=== PATIENT | male | born 1940 | race Caucasian/White ===

== ENCOUNTER 2017-04-17 09:53 | Outpatient (CLI) | payer MEDICARE ==
--- NOTE | 2017-04-17 13:46 | RAD ---
CHEST PA AND LATERAL: Date: 04/17/17 HISTORY: 76-year-old male with dyspnea. COMPARISON: 05/09/16. FINDINGS: Heart size is within normal limits. Stable chronic linear and interstitial changes and minimal bullo us changes are noted bilaterally. Atherosclerosis of aorta. Somewhat triangular shaped stable metall ic density presumed foreign body overlying the left upper sternal region. Metal plate and screws sta bilize the right clavicle laterally. IMPRESSION: Stable chronic lung changes. No acute intrathoracic disease. POS: OFF
== END 2017-04-17 09:54 | disposition home or self-care (01) ==
LOC: RAD 09:53
PROVIDERS: ATTEND Internal Medicine Critical Care Medicine
DX: R06.00 Dyspnea, unspecified (principal)
CPT/HCPCS: 71020

== ENCOUNTER 2018-04-23 10:34 | Outpatient (CLI) | payer MEDICARE ==
--- NOTE | 2018-04-23 13:01 | RAD ---
CHEST TWO VIEWS: Comparison: 04-17-17, 06-03-17 History: Dyspnea. FINDINGS: There are chronic changes throughout the lung parenchyma. No consolidation or masses. No definite ple ural effusion. Normal cardiac silhouette. Pulmonary vessels are unremarkable. No pneumothorax. Redemo nstration of an internal fixation plate at the distal right clavicle. IMPRESSION: Chronic changes. No acute process. POS: [facility]
== END 2018-04-23 10:35 | disposition home or self-care (01) ==
LOC: RAD 10:34
PROVIDERS: ATTEND Internal Medicine Critical Care Medicine
DX: R06.00 Dyspnea, unspecified (principal)
CPT/HCPCS: 71046

== ENCOUNTER 2019-06-25 13:13 | Inpatient (IN) | payer MEDICARE ==
--- NOTE | 2019-06-25 13:53 | PDOC.FPRHP ---
- History of Present Illness Chief Complaint: L facial droop History of Present Illness: 79 yo M with PMH of multiple strokes presents for Left sided facial weakness that started at 0900 on 06/24/2019. He was a transfer from [place]. Patient presents with his daughter, who lives near his home. Patient lives with his in his own home. Patient developed L sided weakness in his arm and leg 1 week ago, went to his PCPs office and saw the GARNETT ROOM WORKER there. He received an outpatient CT head that was normal. Pt developed slurred speech 2 days ago. Yesterday when he developed the L facial droop, family states they could not get him to come to the hospital. In the [place] ED, pt received aspirin. CT head was negative. CTA head neck showed right sided carotid artery stenosis. 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 Drinks about 12 beers per week. No drug use. - Review of Systems General: denies: fever/chills, weight/appetite/sleep changes Eyes: denies: eye pain, vision changes ENT: reports: other (post nasal drainage). denies: nasal congestion, rhinorrhea Respiratory: reports: shortness of breath. denies: cough, congestion Cardiovascular: denies: chest pain, palpitation, edema Gastrointestinal: denies: nausea, vomiting, diarrhea, constipation, abdominal pain, GI bleeding Genitourinary: denies: incontinence, dysuria Skin: reports: rashes (itching bilat lower extremities), lesions (itching lesions BLE), itching Musculoskeletal: denies: pain, tenderness, swelling Neurological: reports: weakness. denies: numbness, syncope, seizure Psychological: denies: anxiety, depression - Vital signs BP: 170/91, Pulse: 61, Resp: 16, Temp: 98.1 (Oral), Pain: 0, O2 sat: 96 on ( Room Air), Time: 06/25/2019 13:31. - Physical Exam Constitutional: NAD, awake, alert and oriented HEENT: PERRLA, EOMI, conjunctiva clear, no scleral icterus, grossly normal hearing, MMM, oropharynx clear, other (mild L sided facial droop) Neck: supple, no LAD Heart: RRR, normal S1/S2, no murmurs/rubs/gallops, pulses present, no edema Lungs: CTAB, no respiratory distress, good air movement, no wheezing Abdomen: soft, non-tender, bowel sounds present Musculoskeletal: normal structure, ROM grossly normal Neurological: other (mild L facial droop with forehead sparing; 4/5 weakness L shoulder shrug; Dysdiadochokinesia L hand; ataxia on finger to nose L side and L side [id number]. 5/5 strenght bilat lower extremities) Skin: good turgor, capillary refill <2 seconds -Skin: rash BLE: scattered pink plaques with scabbing BLE on shins and feet Heme/Lymphatic: no unusual bruising or bleeding Psychiatric: normal mood and affect, intact recent and remote memory FMR H&P: Results - Labs Result Diagrams: 06/27/19 05:11 FMR H&P: A/P - Problem List (1) History of CVA (cerebrovascular accident) Current Visit: Yes Status: Chronic Code(s): Z86.73 - PRSNL HX OF TIA (TIA), AND CEREB INFRC W/O RESID DEFICITS (2) Stenosis of right carotid artery Current Visit: Yes Status: Acute Code(s): I65.21 - OCCLUSION AND STENOSIS OF RIGHT CAROTID ARTERY (3) Rash and nonspecific skin eruption Current Visit: Yes Status: Acute Code(s): R21 - RASH AND OTHER NONSPECIFIC SKIN ERUPTION - Plan Likely CVA with Rt carotid artery stenosis -L arm and leg weakness x 1 week, dysarthria x2 days, L facial droop x1 day. -CT head negative, CTA head/neck showed Rt carotid artery stenosis -s/p aspirin -MRI pending -CV surgery consulted, appreciate recs -Neuro consulted, Dr. Go, appreciate recs -FLP pending, continue home fenofibrate -PT/OT/Speech consulted COPD -continue home symbicort Rash BLE -pt has seen business process expert outpatient -topical steroid cream DVT ppx: lovenox Gi ppx: famotidine Diet: HH, NPO at midnight Consults: PT/OT/Speech; Neuro and Neurosurgery PCP: Rosio Dispo: Admit to telemetry inpatient. LOS likely >2 midnights Addendum - Attending - Attending Attestation Date/Time: 06/28/19 1036 I personally evaluated the patient and discussed the management with Dr. Ulises Fam on 06/25/2019 I agree with the History, Examination, Assessment and Plan documented above with any addition or exceptions noted below - 79 yo M with h/o CVA and Histoplasmosis presented with L sided facial weakness that started at 0900 on . Patient developed L sided weakness in his arm and leg 1 week ago, went to his PCPs office and saw the GARNETT ROOM WORKER there. He received an outpatient CT head that was normal. Pt developed slurred speech 2 days ago. Yesterday when he developed the L facial droop, family states they could not get him to come to the hospital. PMH/PSH/Meds/SH reviewed and agree with resident's documentation. Afebrile VSS Exam repeated by me and agree with resident's findings. Labs: H/H= 14.8/46.3, Ki=209, K=3.9, Cn=875, CO2=25, BUN/Cr=14/1.23, Ynsq=841, trop I<0.010 , TSH= 1.9116, CT brain no acute findings, CTA - string sign involving right carotid artery; mild stenosis of left carotid. A/P: 1) Probable CVA- Admit to stroke; PT/OT/ST consult. Plan for MRI brain. Continue ASA, statin. 2) Right carotid stenosis - will consult CV surgery for evaluation.
[2019-06-25] MEDS ORDERED: Enoxaparin Sodium 40 MG/0.4 ML SYRINGE SC SCH (15:15)
[2019-06-25] MEDS ORDERED: Triamcinolone 0.1% Cream 15 GM TUBE TOP PRN (15:24)
[2019-06-25] MEDS ORDERED: Acetaminophen 325 MG TAB PO PRN (16:06)
[2019-06-25] MEDS ORDERED: Ondansetron ODT 4 MG TAB PO PRN (16:06)
[2019-06-25 17:11] VITALS: BMI 26.7
[2019-06-25] MEDS ORDERED: Clopidogrel Bisulfate 75 MG TAB PO SCH (18:00)
--- NOTE | 2019-06-25 18:53 | CON ---
DATE OF CONSULTATION: 06/25/2019 HISTORY OF PRESENT ILLNESS: Mr. Hudson is a 79-year-old gentleman, who presents with approximately 1-week history of left-sided weakness, both in the arm and leg, left facial droop, and speech difficulty. Since being in the hospital, his neurologic symptoms have completely returned to baseline. He has history of previous episodes of similar neurologic deficit. He was seen by nurse practitioner in [place], who ordered a CT scan of the head, which was negative. Apparently, according the patient, he has never had any sort of carotid workup. In the emergency department, a CT angiogram of the neck was obtained, which shows a severe right proximal internal carotid artery stenosis. The left internal carotid artery is without significant stenosis. [place] of [place] is intact. The patient has been on no anti-platelet agent at home. The patient has COPD, but no other overwhelming medical condition. PAST MEDICAL HISTORY: 1. History of previous strokes/TIA. 2. COPD. 3. History of histoplasmosis. 4. Status post fall from a deer stand with right-sided pneumothorax and chest tube placement into a bleb by emergency department physicians. PAST SURGICAL HISTORY: 1. Chest tube placement. 2. Right rotator cuff surgery. 3. Right distal clavicle fracture ORIF. ALLERGIES: NONE. MEDICATION: At home, fenofibrate 160 mg at bedtime. SOCIAL HISTORY: He quit smoking a long time ago. PHYSICAL EXAMINATION: GENERAL: This is a well-developed, well-nourished man, without current complaint. VITAL SIGNS: Height is 5 feet and 9 inches, weight is 181 pounds. Temperature is 97.1, pulse is 66 and regular, blood pressure is 186/86. HEENT: Sclerae are nonicteric. Pupils are equal and round bilaterally. NECK: Supple. I cannot hear a bruit in either carotid artery. CHEST: Has distant breath sounds bilaterally. HEART: Rhythm is regular without murmur. ABDOMEN: Soft and nontender. EXTREMITIES: No edema. NEUROLOGIC: Extremities have equal strength bilaterally. He has no facial droop. The patient's family says there is some speech change, but I cannot detect anything. DIAGNOSTIC STUDIES: Laboratory has not been checked. EKG shows normal sinus rhythm. ASSESSMENT AND PLAN: I have reviewed the CT angiogram, which shows a severe right internal carotid artery stenosis with good flow distally. Left internal carotid artery is widely patent without significant stenosis. We have discussed carotid endarterectomy and he is agreeable to proceed. We will plan for surgery on . In the interim, we will have him on aspirin and Plavix with Lovenox given tomorrow. Risks, benefits, and options of surgery have been discussed with he and his family and they are agreeable to proceed. Job ID: [id number]
[2019-06-25] MEDS ORDERED: Fenofibrate Nanocrystallized 145 MG TAB PO SCH (21:00)
[2019-06-25] MEDS: Famotidine 20 MG TAB PO SCH (21:23)
--- NOTE | 2019-06-25 21:40 | MRI ---
NONCONTRAST MRI OF BRAIN: 06/25/19 HISTORY: Weakness left side of body for one week. Unsteady gait. History of prior strokes. COMPARISON: CT head on 06/25/19. FINDINGS: There are several areas of restricted diffusion seen in the watershed distribution of the right cereb ral hemisphere with larger areas of restricted diffusion in the watershed distribution of the right M CA/PERSON INVESTIGATOR compatible with acute watershed infarctions involving the right cerebral hemisphere. There are patchy and confluent areas of increased FLAIR and T2 weighted signal intensity in the periv entricular and subcortical white matter which is nonspecific but likely reflective of moderate to sev ere chronic small vessel ischemic changes. There are cavitated remote lacunar infarctions seen in eac h basal ganglia. The septum pellucidum and third ventricle are in the midline. There is cerebral and cerebellar volume loss. The right vertebral artery flow void is not seen. Recent CT examination demonstrated very smal l size of the right vertebral artery with respect to the left vertebral artery which is dominant. There is evidence of an empty sella turcica. Mastoid effusions are seen on the right. Minimal mucosa thickening is seen in the right sided ethmoidal air cells. The orbits and remainder of the skull base have a normal MRI appearance. IMPRESSION: 1. Acute watershed distribution infarctions involving the right cerebral hemisphere. 2. Moderate to severe chronic small vessel ischemic changes. 3. Cerebral and cerebellar volume loss. 4. Right vertebral artery flow void is not well appreciated on this exam. The distal right verte bral artery on prior CTA exam was very small in caliber. 5. Mastoid effusions on the right. POS: [facility]
[2019-06-26] MEDS ORDERED: diphenhydrAMINE 25 MG CAP PO SCH ×2 (01:00→21:45)
[2019-06-26 05:45] LABS: Cardiac Risk 5.1 (Less than 4.5)
--- NOTE | 2019-06-26 06:01 | PDOC.FM ---
- Subjective Subjective: Patient has no complaints this morning. He feels like his speech is still a little different but thinks he is regaining his strength. - Objective Vital Signs & Weight: Vital Signs (12 hours) Temp Pulse Resp BP BP Pulse Ox 06/26/19 04:05 97.5 F L 73 20 125/61 93 L 06/26/19 00:33 78 16 95 06/25/19 23:56 97.5 F L 83 16 108/73 92 L 06/25/19 20:43 98.5 F 75 14 125/67 94 L 06/25/19 18:44 74 16 96 06/25/19 18:42 172/85 H Weight Weight 82.157 kg I&O: 06/24/19 06/25/19 06/26/19 06:59 06:59 06:59 Intake Total 540 Output Total 1 Balance 539 Result Diagrams: 06/26/19 04:51 Phys Exam - Physical Examination Constitutional: NAD HEENT: moist MMs Neck: supple, full ROM Respiratory: no wheezing, clear to auscultation bilateral Cardiovascular: RRR, no significant murmur Gastrointestinal: soft, non-tender, positive bowel sounds Musculoskeletal: no edema, pulses present strength 5/5 in extremities Neurological: normal sensation some difficulty with accomodation, slight left facial droop Psychiatric: normal affect Skin: no rash, normal turgor Dx/Plan (1) Stenosis of right carotid artery Code(s): I65.21 - OCCLUSION AND STENOSIS OF RIGHT CAROTID ARTERY Status: Acute (2) History of CVA (cerebrovascular accident) Code(s): Z86.73 - PRSNL HX OF TIA (TIA), AND CEREB INFRC W/O RESID DEFICITS Status: Chronic (3) Rash and nonspecific skin eruption Code(s): R21 - RASH AND OTHER NONSPECIFIC SKIN ERUPTION Status: Acute - Plan Plan: Patient is a 79 yo M with hx of CVA who is admitted with left-sided deficits and CVA of right cerebral hemisphere: #CVA with Rt carotid artery stenosis -L arm and leg weakness x 1 week, dysarthria x2 days, L facial droop x1 day. -CT head negative, CTA head/neck showed severe right carotid artery stenosis -s/p aspirin in ED -MRI Brain shows acute watershed distribution infarctions of right cerebral hemisphere, moderate to severe chronic small vessel ischemic changes -Consult CV surgery-Dr. Salinas--appreciate recs, will start on ASA, Plavix, continue Lovenox; plan for right carotid endarterectomy on 06/27 -Consult Neurology-Dr. Go--appreciate recs -FLP: total chol 188, LDL 119, HDL 37 -TSH 1.9 -last A1C on 04/25/19 was 5.2% -continue home fenofibrate -PT/OT/Speech consulted, place NPO until speech evaluation completed #COPD -continue home symbicort #Rash BLE -pt has seen diesel retrofit installer outpatient -continue topical steroid cream DVT ppx: lovenox GI ppx: famotidine Diet: NPO for speech eval, will need to be NPO at midnight 06/27 for planned procedure Code status: FULL PCP: Rosio Dispo: Stable, admit to telemetry inpatient. Continue to monitor for any new deficits. Neurology and CV Surgery consulted, appreciate recs. Plan for carotid endarterectomy on 06/27. Anticipate discharge in 48-72 hrs. Addendum - Attending - Attending Attestation Date/Time: 06/26/19 1026 I personally evaluated the patient and discussed the management with Dr. Brady. I agree with the History, Examination, Assessment and Plan documented above with any addition or exceptions noted below. The patient is feeling well. He suffered a right cerebral hemisphere stroke in watershed distribution. He will have CEA tomorrow. Getting echo and pt would benefit from ROLAN. Consulting cardiology.
[2019-06-26 06:59] LABS: ALT (SGPT) 32 U/L (8-55); AST (SGOT) 28 U/L (5-34); Albumin 3.8 g/dL (3.4-4.8); Alkaline Phosphatase 47 U/L (40-110); Anion Gap 14 mmol/L (10-20); BUN (Urea Nitrogen) 13 mg/dL (8.4-25.7); Bilirubin, Total 0.8 mg/dL (0.2-1.2); Calc. Creatinine Clearance 57 mL/min (70-130); Calcium 9.2 mg/dL (7.8-10.44); Carbon Dioxide 25 mmol/L (23-31); Chloride 106 mmol/L (98-107); Estimated GFR-MDRD 55; Globulin 2.7 g/dL (2.4-3.5); Glucose 102 mg/dL (83-110); Potassium 3.6 mmol/L (3.5-5.1); Protein, Total 6.5 g/dL (5.8-8.1); Sodium 141 mmol/L (136-145)
[2019-06-26] MEDS ORDERED: Enoxaparin Sodium 40 MG/0.4 ML SYRINGE SC SCH (09:00)
[2019-06-26] MEDS: Aspirin 81 mg Enteric Coated Tablet PO SCH (09:50)
[2019-06-26] MEDS: Calcium Carbonate 600 MG TAB PO SCH (09:50)
[2019-06-26] MEDS: Clopidogrel Bisulfate 75 MG TAB PO SCH (09:50)
[2019-06-26] MEDS: Famotidine 20 MG TAB PO SCH ×2 (09:50→21:16)
--- NOTE | 2019-06-26 12:31 | CON ---
DATE OF TELEMEDICINE CONSULTATION: 06/26/2019 CHIEF COMPLAINT: Possible acute stroke. HISTORY OF PRESENT ILLNESS: The patient is a very pleasant man who reports he developed a weakness of his right arm about 1 week ago. He went to a college graduation. At that time he also saw his doctors. He went to his physician's office and saw a nurse practitioner. Daughter and family noticed droopiness of his face on 06/24 and brought him into the hospital. The patient does not report any numbness. He does have back pain. He has headache on the right yazidism. PREVIOUS MEDICAL HISTORY: Histoplasmosis 20 years ago and multiple CVAs. He had 2 strokes in the past. This is his third. Last stroke was in 2013. PREVIOUS SURGICAL HISTORY: Rotator cuff surgery on the right side 10 years ago and he had a repeat surgery for the right shoulder in 2012 after a fall following Stroke. FAMILY HISTORY: Mother in her 60s. She had a coronary artery endarterectomy and also had valvular heart disease and congestive heart failure. Father in his 60s from stomach cancer. The patient has two daughters, but one daughter at age 16 following a motor vehicle accident. SOCIAL HISTORY: He drinks daily. He last drank about 2 weeks ago. He last smoked 20 years ago. REVIEW OF SYSTEMS: PULMONARY: Negative for shortness of breath or cough. GI: Negative for nausea, vomiting, or diarrhea. NEUROLOGICAL: Positive for weakness of his left arm and prior strokes. DERMATOLOGIC: Negative for any skin lesions. ENDOCRINE: Normal. HEMATOLOGIC: Negative for bleeding diathesis. ENT: Negative. OPHTHALMOLOGIC: Negative for any vision problems. CURRENT LABORATORY DATA: Sodium 141, potassium 3.6, chloride 106, bicarb 25, BUN 13, creatinine 1.26, glucose 102, AST is 28, ALT 32, alkaline phosphatase 47, triglycerides 162. Cholesterol 188, LDL 119, HDL 37 and his white count 5.4, hemoglobin 14.8, hematocrit 46.3, platelet count 182. Coagulation profile is within normal limits. He did have an MRI of the brain which was reviewed by me and the patient has had acute watershed infarct in the right cerebral hemisphere. [id number] chronic small-vessel ischemic changes, cerebral and cerebellar volume loss and he has had a CT angiogram as well, and he has a string sign in the right carotid artery. Evidence of high-grade long segment stenosis, atheroscleroses with mild stenosis in the left carotid artery. Dominant left vertebral artery. PHYSICAL EXAMINATION: VITAL SIGNS: Temperature 97.5, pulse is 62, O2 sats 92%, and blood pressure 117 /65. GENERAL APPEARANCE: Well-built, well-nourished, very pleasant man. CHEST: Clear vesicular breathing. CARDIOVASCULAR: S1, S2 heard. No murmurs. ABDOMEN: Soft. NEUROLOGICAL: Higher intellectual functions. Normal orientation to time, place , and person. Appropriate conversation. Cranial nerves 2 through 12: Pupils are 2 mm, reactive. Normal extraocular movements. Normal sensation of face bilaterally. He has mild facial droop on the left side. Normal hearing to finger rub bilaterally. Normal elevation of palate. Tongue midline. No atrophy noted. Motor: Bulk normal. Tone normal. Strength 5/5 in upper and lower extremities and muscle groups tested are iliopsoas, hamstrings, quadriceps, ankle dorsiflexion, plantar flexion, deltoid, biceps, triceps, wrist extension and flexion, finger extension and flexion. Deep tendon reflexes 1+ in upper extremities and 2+ in the lower extremities. Sensory: Normal to touch bilaterally. Cerebellar: Normal [id number], [id number]. IMPRESSION AND PLAN: The patient with left-sided weakness starting one week ago. He currently was brought in because he had facial droop noticeable 2 days ago. His workup revealed right carotid artery stenosis. His examination shows normal strength and mild left facial droop. Diagnosis is most consistent with acute cerebrovascular accident in the right cerebral watershed area in the presence of carotid artery stenosis. He is planned for carotid endarterectomy this week and I agree with that plan. Anti-platelet agents per vascular surgery and we will see the patient as needed. Job ID: [id number] [facility]
[2019-06-26] MEDS ORDERED: Midodrine HCl 5 MG TAB PO SCH (16:00)
--- NOTE | 2019-06-26 16:52 | CON ---
DATE OF CONSULTATION: HISTORY OF PRESENT ILLNESS: The patient is a 79-year-old gentleman, who presented with left-sided weakness. The patient has had a previous history of several cerebrovascular accidents. The patient was admitted with left-sided weakness. The patient denied having any chest discomfort. PAST MEDICAL HISTORY: 1. CVA. 2. Histoplasmosis. 3. Dyslipidemia. PAST SURGICAL HISTORY: Shoulder surgery and knee surgery. SOCIAL HISTORY: Nonsmoker. FAMILY HISTORY: Positive family history of heart disease. ALLERGIES: NO KNOWN DRUG ALLERGIES. MEDICATIONS: 1. Fenofibrate 160 daily. 2. Aspirin 81 daily. REVIEW OF SYSTEMS: Ten-point system otherwise unremarkable. PHYSICAL EXAMINATION: GENERAL: A well-developed gentleman, in no acute distress. VITAL SIGNS: Blood pressure 120/82. NECK: No jugular venous distention. No carotid bruits. LUNGS: Clear to auscultation. HEART: Regular rate and rhythm. Normal S1 and S2 with no murmurs. ABDOMEN: Nondistended. EXTREMITIES: Show no edema. VASCULAR: Radial pulses are 2+. LABORATORY DATA: Sodium 141, potassium 3.6, chloride 106, bicarbonate 25, BUN 13, creatinine 1.26. Cholesterol was 188 and triglycerides were 162. EKG revealed him to have normal sinus rhythm with a normal ECG. IMPRESSION: 1. Cerebrovascular accident. 2. Carotid artery disease 3. Dyslipidemia. PLAN: This gentleman has suffered a cerebrovascular accident. He has been found to have a severe stenosis of his right carotid artery. The patient is being scheduled for surgery tomorrow. From a cardiac standpoint, I will switch him to statin therapy, which is recommended for all patients with cardiovascular disease. We would also discontinue his Tricor. The patient would also benefit from being on Vascepa. We would hold this medication until after surgery. Job ID: [id number] [facility]
[2019-06-26] MEDS: Rosuvastatin 20 MG TAB PO SCH (21:15)
--- NOTE | 2019-06-27 05:56 | PDOC.FM ---
- Subjective Subjective: Patient voices no complaints this morning. He refuses to answer ROS questions. He is on schedule to have right carotid endardectomy with Dr. Salinas later today. - Objective Vital Signs & Weight: Vital Signs (12 hours) Temp Pulse Resp BP Pulse Ox 06/27/19 04:00 97.9 F 62 16 121/61 93 L 06/26/19 23:43 72 16 97 06/26/19 23:41 97.4 F L 71 20 131/71 97 06/26/19 20:04 98 F 74 20 122/65 94 L 06/26/19 19:40 94 L 06/26/19 18:38 78 16 97 Weight Weight 82.157 kg I&O: 06/25/19 06/26/19 06/27/19 06:59 06:59 06:59 Intake Total 540 360 Output Total 1 Balance 539 360 Result Diagrams: 06/27/19 05:11 Phys Exam - Physical Examination Constitutional: NAD HEENT: moist MMs, sclera anicteric Neck: supple, full ROM Respiratory: no wheezing, no rhonchi, clear to auscultation bilateral Cardiovascular: RRR, no significant murmur Gastrointestinal: soft, positive bowel sounds Musculoskeletal: no edema, pulses present Neurological: normal sensation, moves all 4 limbs Psychiatric: normal affect, A&O x 3 Skin: no rash, normal turgor Dx/Plan (1) Stenosis of right carotid artery Code(s): I65.21 - OCCLUSION AND STENOSIS OF RIGHT CAROTID ARTERY Status: Acute (2) History of CVA (cerebrovascular accident) Code(s): Z86.73 - PRSNL HX OF TIA (TIA), AND CEREB INFRC W/O RESID DEFICITS Status: Chronic (3) Rash and nonspecific skin eruption Code(s): R21 - RASH AND OTHER NONSPECIFIC SKIN ERUPTION Status: Acute - Plan Plan: Patient is a 79 yo M with hx of CVA who is admitted with left-sided deficits and CVA of right cerebral hemisphere: #CVA with Rt carotid artery stenosis -L arm and leg weakness x 1 week, dysarthria x2 days, L facial droop x1 day. -CT head negative, CTA head/neck showed severe right carotid artery stenosis -s/p aspirin in ED -MRI Brain shows acute watershed distribution infarctions of right cerebral hemisphere, moderate to severe chronic small vessel ischemic changes -Consult CV surgery-Dr. Salinas--appreciate recs, will start on ASA, Plavix, continue Lovenox; plan for right carotid endarterectomy on 06/27 -Consult Neurology-Dr. Go--appreciate recs, agrees with CV surgery recs -FLP: total chol 188, LDL 119, HDL 37 -TSH 1.9 -last A1C on 04/25/19 was 5.2% -continue home fenofibrate -PT/OT/Speech consulted, place NPO until speech evaluation completed -Consult Cardiology-Dr. Cornell--appreciate recs, will discontinue Fenofibrate , start Rosuvastatin, also start Vascepa after surgery completed -TTE ordered, order also placed for ROLAN if needed-both pending -slight bump in Creatinine this AM from 1.26 to 1.50, likely 2/2 dehydration as patient has been NPO for better part of 48 hrs although has been allowed to eat/ drink for 2 meals yesterday #COPD -continue home symbicort #Rash BLE -pt has seen associate broker outpatient -continue topical steroid cream DVT ppx: lovenox GI ppx: famotidine Diet: NPO at midnight 06/27 for planned procedure Code status: FULL PCP: Rosio Dispo: Stable, admit to telemetry inpatient. Continue to monitor for any new deficits. Cardiology, Neurology, and CV Surgery consulted, appreciate recs. Plan for carotid endarterectomy today with Dr. Salinas. Anticipate discharge in 48 -72 hrs. Addendum - Attending - Attending Attestation Date/Time: 06/27/19 5074 I personally evaluated the patient and discussed the management with Dr. Brady. I agree with the History, Examination, Assessment and Plan documented above with any addition or exceptions noted below. The patient was seen in daystay. He will be having a CEA. Echo is still pending. continue therapy.
[2019-06-27 05:58] LABS: ALT (SGPT) 27 U/L (8-55); AST (SGOT) 21 U/L (5-34); Albumin 3.9 g/dL (3.4-4.8); Alkaline Phosphatase 48 U/L (40-110); Anion Gap 12 mmol/L (10-20); BUN (Urea Nitrogen) 15 mg/dL (8.4-25.7); Bilirubin, Total 0.7 mg/dL (0.2-1.2); Calc. Creatinine Clearance 48 mL/min (70-130); Calcium 9.4 mg/dL (7.8-10.44); Carbon Dioxide 26 mmol/L (23-31); Chloride 107 mmol/L (98-107); Estimated GFR-MDRD 45; Globulin 2.6 g/dL (2.4-3.5); Glucose 112 mg/dL (83-110); Protein, Total 6.5 g/dL (5.8-8.1); Sodium 141 mmol/L (136-145)
[2019-06-27] MEDS ORDERED: Fentanyl 100 MCG/2 ML VIAL ONE ×2 (07:29→09:53)
[2019-06-27] MEDS ORDERED: Isosulfan Blue 50 MG/5 ML VIAL ONE (07:30)
--- NOTE | 2019-06-27 08:45 | PRG ---
DATE OF SERVICE: 06/27/2019 SUBJECTIVE: Mr. Hudson is doing well. He is regaining strength. He is scheduled for surgery this afternoon. OBJECTIVE: VITAL SIGNS: Blood pressure 122/71, pulse 72, and temperature afebrile. LUNGS: Clear to auscultation. HEART: Regular rate and rhythm. ABDOMEN: Soft, nontender, and nondistended. EXTREMITIES: No edema. Telemetry monitoring did show . IMPRESSION: 1. Recent stroke. 2. Severe carotid disease. PLAN: The patient appears to be stable from a cardiac standpoint. He will proceed with carotid endarterectomy today. He has been placed on statin therapy. Continue aspirin in addition to Plavix. Otherwise, I have no further recommendations. Job ID: [id number]
[2019-06-27] MEDS ORDERED: Heparin 5,000 UNITS/ML VIAL ONE (09:05)
[2019-06-27] MEDS ORDERED: Protamine Sulfate 50 MG/5 ML VIAL ONE (09:05)
[2019-06-27] MEDS ORDERED: Midazolam HCl 2 mg/2 ml Vial ONE (09:09)
[2019-06-27] MEDS ORDERED: Ondansetron ODT 4 MG TAB ONE (09:09)
[2019-06-27] MEDS ORDERED: CEFAZOLIN 2 GM in Premix Bag 1 BAG IVPB SCH (10:00)
[2019-06-27] MEDS: Aspirin 81 mg Enteric Coated Tablet PO SCH (10:19)
[2019-06-27] MEDS: Calcium Carbonate 600 MG TAB PO SCH (10:19)
[2019-06-27] MEDS: Famotidine 20 MG TAB PO SCH ×2 (10:20→20:09)
[2019-06-27] MEDS: Clopidogrel Bisulfate 75 MG TAB PO SCH (10:20)
[2019-06-27] MEDS ORDERED: Promethazine HCl 25 MG/ML VIAL SLOW IVP PRN (11:35)
[2019-06-27] MEDS ORDERED: Promethazine HCl 25 MG/ML VIAL IM PRN ×2 (11:35→13:23)
[2019-06-27] MEDS ORDERED: Ondansetron HCl/PF 4 MG/2 ML Vial IVP PRN (11:35)
--- NOTE | 2019-06-27 11:52 | OP ---
DATE OF PROCEDURE: 06/27/2019 PREOPERATIVE DIAGNOSIS: Symptomatic right carotid stenosis. POSTOPERATIVE DIAGNOSIS: Symptomatic right carotid stenosis. PROCEDURE PERFORMED: Right carotid endarterectomy with patch angioplasty. ANESTHESIA: General endotracheal, Dr. Octavio Chun. ESTIMATED BLOOD LOSS: 100. DRAINS: None. SPECIMENS: None. DESCRIPTION OF PROCEDURE: After consent was obtained, the patient was brought to the operating room and placed in supine position on the operating room table. Appropriate central line and monitors were placed and general endotracheal anesthesia was induced. Head was rotated to the left and neck extended. Joints were appropriately padded and supported. Right neck was prepped and draped in usual sterile fashion. Skin incision was made along the anterior border of the sternocleidomastoid. Platysma was incised with electrocautery. Right sternocleidomastoid was mobilized. Common, external, and internal carotid arteries were carefully dissected free from surrounding tissues. Hypoglossal and vagus nerves were noted and protected throughout the procedure. The patient was given 5000 units of heparin. The internal, common, and external carotid arteries were serially clamped. Incision was made on the common carotid artery, extended through the bulb on the internal carotid artery distal to the stenosis. A 10-[place] shunt was placed and antegrade flow re-established. Endarterectomy was performed beginning on the common carotid artery extended through the bulb on the internal carotid artery distal to plaque. A good tapered distal endpoint was obtained. There was an area of very thin-walled carotid, which was everted and shortened with running 7-0 Prolene suture. Bovine pericardial patch was sewn in place with running 7-0 Prolene suture after debriding all the medial fibers. Prior to completion of the patch suture line, shunt was clamped and removed. Arteries were back bled and flushed. Suture line was completed while the internal carotid artery back bled. The internal carotid artery was re-clamped and antegrade flow re-established up the external carotid artery for 10 seconds followed by the internal carotid artery. Three separate sutures were placed for hemostasis in the patch suture line. Protamine was administered. Hemostasis was ensured. Wounds were copiously irrigated and closed in layers. Dermabond applied to the skin. The patient was awakened and neurologically intact at completion of procedure. The patient was transferred to the intensive care unit in stable, but guarded condition. Job ID: [id number]
[2019-06-27] MEDS ORDERED: Phenylephrine HCL 10 MG/ML VIAL ONE (11:58)
[2019-06-27] MEDS ORDERED: Ondansetron PF 4 MG/2 ML Vial IVP PRN (13:23)
[2019-06-27] MEDS ORDERED: Nitroglycerin 50 MG/250 ML BOT 250 ML IVPB PRN (13:23)
[2019-06-27] MEDS ORDERED: hydrALAZINE 20 MG/ML VIAL SLOW IVP PRN (13:23)
[2019-06-27] MEDS ORDERED: Phenylephrine 10 MG/NS 250 ML 250 ML IVPB PRN (13:23)
[2019-06-27] MEDS ORDERED: traMADol HCl 50 MG TAB PO PRN (13:23)
[2019-06-27] MEDS ORDERED: Fentanyl 100 MCG/2 ML VIAL SLOW IVP PRN (13:23)
[2019-06-27] MEDS ORDERED: Acetaminophen 325 MG TAB PO PRN (13:23)
[2019-06-27] MEDS ORDERED: diphenhydrAMINE 25 MG CAP PO PRN (13:42)
[2019-06-27] MEDS: Sodium Chloride 0.9% 1,000 ML IV SCH (13:55)
[2019-06-27] MEDS ORDERED: Lidocaine 1% PF 5 ML VIAL ONE (14:06)
[2019-06-27] MEDS ORDERED: PROPOFOL 200 MG/20 ML VIAL ONE (14:06)
[2019-06-27] MEDS ORDERED: Glycopyrrolate 0.2 MG/ML 5 ML SYRINGE ONE (14:06)
[2019-06-27] MEDS ORDERED: Ondansetron PF 4 MG/2 ML Vial ONE (14:06)
[2019-06-27] MEDS ORDERED: Dexamethasone 20 MG/5 ML VIAL ONE (14:06)
[2019-06-27] MEDS ORDERED: Rocuronium Bromide 10 MG/ML (10ML VIAL) ONE (14:06)
[2019-06-27] MEDS: CEFAZOLIN 2 GM in Premix Bag 1 BAG IVPB SCH (16:34)
[2019-06-27] MEDS: Rosuvastatin 20 MG TAB PO SCH (20:09)
[2019-06-28] MEDS: Sodium Chloride 0.9% 1,000 ML IV SCH ×2 (00:14→10:24)
[2019-06-28] MEDS: CEFAZOLIN 2 GM in Premix Bag 1 BAG IVPB SCH ×2 (00:14→08:14)
--- NOTE | 2019-06-28 05:35 | PDOC.FM ---
- Subjective Subjective: Patient doing well this morning, sitting upright in a chair watching TV. Denies any complaints at this time, including cp, sob, neck pain. Reports the surgery went well yesterday. Patient discussed that him and his have talked about HH possibly coming to the home to help him. Post acute screen placed yesterday, confirmed with nursing. Patient agreeable with current plan of care. - Objective MAR Reviewed: Yes Vital Signs & Weight: Vital Signs (12 hours) Temp Pulse Resp BP Pulse Ox 06/28/19 04:00 97.6 F 06/28/19 00:00 98.7 F 06/27/19 23:22 54 L 14 95 06/27/19 20:00 98.1 F 98 06/27/19 18:36 62 16 93 L 06/27/19 18:00 52 L 101/56 L Weight Admit Weight 82.1 kg Weight 82.157 kg Most Recent Monitor Data Heart Rate from ECG 59 NIBP 98/55 NIBP BP-Mean 69 Respiration from ECG 19 SpO2 93 I&O: 06/26/19 06/27/19 06/28/19 06:59 06:59 06:59 Intake Total 191 040 0484 Output Total 1 580 Balance 053 841 7638 Result Diagrams: 06/27/19 05:11 Phys Exam - Physical Examination Constitutional: NAD HEENT: moist MMs, sclera anicteric Neck: supple, full ROM R carotid scar present, clean dry and intact Respiratory: no rales, no rhonchi, clear to auscultation bilateral Cardiovascular: RRR, no significant murmur Gastrointestinal: soft, non-tender Musculoskeletal: no edema, pulses present Neurological: non-focal, moves all 4 limbs Lymphatic: no nodes Psychiatric: normal affect, A&O x 3 Skin: no rash, normal turgor Dx/Plan (1) Stenosis of right carotid artery Code(s): I65.21 - OCCLUSION AND STENOSIS OF RIGHT CAROTID ARTERY Status: Acute (2) History of CVA (cerebrovascular accident) Code(s): Z86.73 - PRSNL HX OF TIA (TIA), AND CEREB INFRC W/O RESID DEFICITS Status: Chronic (3) Rash and nonspecific skin eruption Code(s): R21 - RASH AND OTHER NONSPECIFIC SKIN ERUPTION Status: Acute - Plan Plan: Patient is a 79 yo M with hx of CVA who is admitted with left-sided deficits and CVA of right cerebral hemisphere: #CVA with Rt carotid artery stenosis -L arm and leg weakness x 1 week, dysarthria x2 days, L facial droop x1 day, all of which have continued to improve/resolve; patient reports of no residual deficits -CT head negative, CTA head/neck showed severe right carotid artery stenosis -s/p aspirin in ED -MRI Brain shows acute watershed distribution infarctions of right cerebral hemisphere, moderate to severe chronic small vessel ischemic changes -Consult CV surgery-Dr. Salinas--appreciate recs, will continue on ASA, Plavix, continue Lovenox -right carotid endarterectomy on 06/27 -Consult Neurology-Dr. Go--appreciate recs, agrees with CV surgery recs -Consult Cardiology-Dr. Cornell, Dr. Burkett--appreciate recs, agree with continuing asa and plavix; continue rosuvastatin, consider starting vascepa s/p surgery -FLP: total chol 188, LDL 119, HDL 37 -TSH 1.9 -last A1C on 04/25/19 was 5.2% -PT/OT/Speech consulted, post acute screening consulted for possible inpatient rehab placement -TTE ordered, pending #COPD -continue home symbicort #Rash BLE -pt has seen grocery clerk outpatient -continue topical steroid cream DVT ppx: lovenox GI ppx: famotidine Diet: HH Code status: FULL PCP: Rosio Dispo: Stable, admitted to CCU for monitoring s/p R carotid endarterectomy. Continue to monitor for any new deficits. Cardiology, Neurology, and CV Surgery consulted, appreciate recs. Addendum - Attending - Attending Attestation Date/Time: 06/28/19 1033 I personally evaluated the patient and discussed the management with Dr. Jean Baptiste. I agree with the History, Examination, Assessment and Plan documented above with any addition or exceptions noted below. Patient has been cleared by CV surg for discharge. Pt wants to d/c home with home health. Echo is pending, can be followed up by his pcp.
[2019-06-28 07:10] VITALS: TEMP 97.9
[2019-06-28] MEDS: Aspirin 81 mg Enteric Coated Tablet PO SCH (08:11)
[2019-06-28] MEDS: Famotidine 20 MG TAB PO SCH (08:12)
[2019-06-28] MEDS: Clopidogrel Bisulfate 75 MG TAB PO SCH (08:12)
[2019-06-28] MEDS: Calcium Carbonate 600 MG TAB PO SCH (08:12)
[2019-06-28 10:10] VITALS: BP 111/58
== END 2019-06-28 13:05 | disposition home health service (06) | DRG 38 ==
LOC: ERS 13:13 → 2SE 15:41 → SURG A 06-27 09:13 → CCU 06-27 12:58
PROVIDERS: ADMIT Family Medicine; ATTEND Family Medicine
PROC: 03CK0ZZ Extirpation of Matter from Right Internal Carotid Artery, Open Approach (ICD-10-PCS; principal; 2019-06-27)
PROC: 03UK0KZ Supplement Right Internal Carotid Artery with Nonautologous Tissue Substitute, Open Approach (ICD-10-PCS; 2019-06-27)
DX: I63.231 Cerebral infarction due to unspecified occlusion or stenosis of right carotid arteries (principal); G81.94 Hemiplegia, unspecified affecting left nondominant side; R29.810 Facial weakness; R47.81 Slurred speech; J44.9 Chronic obstructive pulmonary disease, unspecified; E78.5 Hyperlipidemia, unspecified; R47.1 Dysarthria and anarthria; Z87.891 Personal history of nicotine dependence
CPT/HCPCS: 36415; 70551; 80053; 80061; 93306; 94640; 99285; J0690; J1100; J1642; J1644; J1650; J2001; J2250; J2370; J2405; J2704; J2720; J3010; J7620; Q0162; Q0163; Q9968

== ENCOUNTER 2019-07-10 12:46 | Outpatient (CLI) | payer MEDICARE ==
--- NOTE | 2019-07-10 13:24 | RAD ---
PA AND LATERAL CHEST: HISTORY: Dyspnea. COMPARISON: 07/03/2019 FINDINGS: Scarring in the lung base is again seen. The heart size is normal. The aorta is tortuous. No focal ar eas of consolidation, pneumothoraces or pleural effusions are identified. Mid and lower thoracic spin e compression deformity is again noted. IMPRESSION: Stable examination. No acute process. POS: [facility]
== END 2019-07-10 12:47 | disposition home or self-care (01) ==
LOC: RAD 12:46
PROVIDERS: ATTEND Internal Medicine Critical Care Medicine
DX: R06.00 Dyspnea, unspecified (principal)
CPT/HCPCS: 71046

== ENCOUNTER 2019-07-11 19:32 | Inpatient (IN) | payer MEDICARE ==
--- NOTE | 2019-07-11 23:44 | PDOC.FPRHP ---
- History of Present Illness Chief Complaint: Burning while Urinating History of Present Illness: Patient is a 79 y/o male with a PMH significant for a recent CVA and BPH who presents to the clinic from an outside facility with a CC of dysuria. His daughter was present at the time of evaluation and she assisted with much of the HPI. Per the patient's daughter, the patient recently had a catheter placed secondary to urinary retention following a carotid endarterectomy several weeks ago. Initially there was concern about poor placement, as there was intermittent blood in the patient's catheter collection bag. Over the past several days the patient began to complain of worsening dysuria and occasional leakage of urine around the catheter insertion site, with family members also noticing mild confusion and a subjective fever, which prompted his presentation to an outside ED. While in the outside ED, he received Ceftriaxone 2 g IM and 1 L of NS. He was initially going to be DC'd home on PO antibiotics, but was subsequently found to be hypotensive, tachycardic and tachypneic, and as such was [facility] ED. While in the ED, he received an additional 1L bolus of NS and Vancomycin 1 g IV. Patient denied chills, N/V/D, ABD pain, new-onset back pain, new-onset rashes or genital lesions or a history of recent or frequent UTIs, as well as chest pain or SOB. ED Course: While in the ED, the patient demonstrated multiple episodes of hypotension, tachycardia and tachypnea and was subsequently transferred to [facility] for a higher level of care. s/p 1.5L NS, Ceftriaxone 2 g IV and Vancomycin 1 mg IV, [place] 5/325 and Tylenol 650 mg PO - Allergies/Adverse Reactions Allergies Allergy/AdvReac Type Severity Reaction Status Date / Time No Known Allergies Allergy Verified 07/12/19 00:13 - Home Medications Medication Instructions Recorded Confirmed Type Aspirin 81 mg PO DAILY 06/25/19 07/12/19 History Calcium Carbonate [Calcium] 600 mg PO DAILY 06/25/19 07/12/19 History Cholecalciferol (Vitamin D3) 1,000 unit PO DAILY 06/25/19 07/12/19 History [Vitamin D] Clopidogrel Bisulfate [Plavix] 75 mg PO DAILY #30 tab 06/28/19 07/12/19 Rx Rosuvastatin [Crestor] 20 mg PO HS #30 tab 06/28/19 07/12/19 Rx Budesonide-Formoterol [Symbicort 1 puff INH PRN PRN 07/12/19 07/12/19 History 160-4.5] Cyanocobalamin (Vitamin B-12) 250 mcg PO DAILY 07/12/19 07/12/19 History [Vitamin B-12] Folic Acid 0.4 mg PO DAILY 07/12/19 07/12/19 History Oxybutynin [Ditropan] 5 mg PO BID 07/12/19 07/12/19 History Tamsulosin HCl [Flomax] 0.4 mg PO DAILY 07/12/19 07/12/19 History - History PMHx: CVA, CAD, BPH PSHx: Carotid Endarterectomy FHx: Denies FHx of Urologic Abnormalities, HTN, DM2 Social: Remote Tobacco Abuse, Remote EtOH Use, Denies Drug Abuse Code: Full - Review of Systems General: denies: fever/chills, fatigue Eyes: denies: vision changes ENT: denies: nasal congestion, rhinorrhea Respiratory: denies: cough, congestion, shortness of breath Cardiovascular: denies: chest pain, palpitation, edema Gastrointestinal: denies: nausea, vomiting Genitourinary: reports: dysuria. denies: discharge Skin: denies: rashes, lesions, itching Musculoskeletal: denies: pain, swelling Neurological: denies: syncope, weakness - Vital signs BP: [102/63] HR: [66] RR: [20] Tmax: [97.7] Pox: [96]% on [Room] Wt: [85 kg] - Physical Exam Constitutional: NAD, awake, alert and oriented, well developed HEENT: normocephalic and atraumatic, PERRLA, conjunctiva clear, no scleral icterus, grossly normal vision, grossly normal hearing, normal nasal mucosa, MMM , oropharynx clear, good dention Neck: supple, FROM, trachea midline, no LAD Chest: no-tender to palpation, no lesions Heart: RRR, normal S1/S2, no murmurs/rubs/gallops, pulses present, no edema Lungs: CTAB, no respiratory distress, good air movement, no rales/rhonchi, no wheezing, no retractions Abdomen: soft, non-tender, bowel sounds present, no masses/distention Musculoskeletal: normal structure, ROM grossly normal Neurological: no focal deficit Skin: no rash/lesions, capillary refill <2 seconds, no jaundice Heme/Lymphatic: no unusual bruising or bleeding, no purpura, no petechia, no LAD Psychiatric: normal mood and affect, intact recent and remote memory FMR H&P: A/P - Problem List (1) UTI (urinary tract infection) due to urinary indwelling Chawla catheter Current Visit: Yes Status: Acute Code(s): T83.511A - I/I REACT D/T INDWELLING URETHRAL CATHETER, INIT; N39.0 - URINARY TRACT INFECTION, SITE NOT SPECIFIED (2) Tobacco abuse, in remission Current Visit: Yes Status: Acute Code(s): F17.201 - NICOTINE DEPENDENCE, UNSPECIFIED, IN REMISSION (3) VENANCIO (acute kidney injury) Current Visit: Yes Status: Acute Code(s): N17.9 - ACUTE KIDNEY FAILURE, UNSPECIFIED - Plan Patient is a 79 y/o male who presents to the ED for evaluation of dysuria and subjective confusion. 1. UTI due to Indwelling Chawla Catheter -Sepsis Criteria met at Outside Facility - relatively stable since admission -Patient's HPI is concerning for episodes of hematuria and dysuria in the presence of an indwelling Chawla Catheter -WBCs: 8.5 -Lactic Acid: 1.7 -UA: +Nitrites, +LEs, +WBCs, +RBCs -Urine Cultures: Pending -Blood Cultures (Outside Facility): Pending -s/p Ceftriaxone and Vancomycin - will continue Ceftriaxone 1 g IV Q24H -PT/OT Consult: Pending 2. VENANCIO on CKD -Cr: 1.51 - elevated from baseline of ~1.25 -LR @ 125 ml/hr -Avoid nephrotoxic drugs 3. CAD -s/p Carotid Endarterectomy -Continue home medication regimen 4. BPH -Possible contributing factor to #1 -Continue home regimen of Tamsulosin and Oxybutynin 4. Tobacco Abuse, Remote -Stable - no intervention required Code: Full Diet: HH/CC Activity: Ambulate w/ Assist VTE PPx: Lovenox 40 mg SC & SCDs IVF: LR @ 125 ml/hr Dispo: Patient is currently admitted to the Medical Floor for a UTI due to Indwelling Chawla Catheter. Continue ABx regimen and fluid resuscitation as per above. Await BCx and UCx results and tailor ABx regimen accordingly. Trend AM labs and continue to monitor chronic medical conditions. Expected LOS > 48H. FMR H&P: Upper Level - Pertinent history 79 y/o M PMHx recent CVA and multiple CVA's presents to the ED because he has been feeling poorly. He was recently d/c'd from the hospital about 2 weeks ago for a CVA. He has been getting home health since then. He has an indwelling chawla since that time because he was unable to urinate. Dr. Ordaz saw him on Monday and gave him a medication for his bladder and one for his prostate, but elected to keep the chawla in due to the possible neurogenic component from the recent CVA. He reports fevers starting last night. He presented to the ED in [place] and was found to be febrile and have a UTI. He was given Vanc, Rocephin, 2.5L NS in the ED. - Pertinent findings Vitals: BP 92/57, MAP: 68, Pulse: 72, Resp: 17 (Non-Labored), Tmax: 101.7 (Oral) , O2 sat: 99 on (Room Air) PE: Gen - alert, oriented, NAD CV - RRR Lungs - CTAB Abd - soft, NTTP Labs: WBC 8.5, Lactic acid 1.7, Cr 1.41, UA - +nitrite, large blood, large LE, 3 + bacteria CXR - no acute process - Plan Date/Time: 07/11/19 2216 I, Kayla Wilburn MD, PGY-3, have evaluated this patient and agree with findings/ plan as outlined by international specialist resident. Pertinent changes/additions are listed here. Sepsis 2/2 CAUTI Pt with complicated UTI with indwelling catheter for about [address] Ordaz outpatient. s/p Rocephin and vanc. s/p 2.5L NS -Continue rocephin -IVF -UCx pending, BCx pending Urinary Retention Possible neurogenic bladder vs BPH -Continue home meds -Consider urology consult in AM about catheter removal h/o Recent CVA -Continue home meds -PT/OT Dispo: Admit to medical LOS: Likely greater than 2 days Addendum - Attending - Attending Attestation Date/Time: 07/12/19 0708 I personally evaluated the patient and discussed the management with Dr. Eastman on 07/11/2019 I agree with the History, Examination, Assessment and Plan documented above with any addition or exceptions noted below - 79 yo male with h/o CAD, BPH, CVA including recent CVA with carotid endarterectomy and urinary retention with indwelling Chawla presents with generalized weakness, dysuria for last 2-3 days. Denies any fever/chills, N/V. Decreased appetite. PMH/PSH/Meds/SH reviewed and agree with resident's documentation. Tm 101.7 VSS Exam repeated by me and agree with resident's findings. Labs: WBC=8.5, H/H=12.9/39.3, Yju=450, Kh=939, K=3.7, Fo=814, CO2=20, BUN/Cr=15/1.41, Gmnw=695, AST/ALT=35/36, lactic acid=1.7, U/A-1 + protein, lg blood, (+) nitrite, lg leuk est, wbc>50, 3+ bact A/P: 1) Sepsis secondary to UTI- continue IV abx; blood/urine cultures pending. Continue IVF. 2 ) Urinary retention- continue chawla; may contact urology regarding plan for removal. 3) Recent CVA- continue home meds
[2019-07-12] MEDS ORDERED: Sodium Chloride 0.9% 1,000 ML IV SCH (00:03)
[2019-07-12] MEDS: Lactated Ringer's 1,000 ML IV SCH ×4 (00:56→20:23)
[2019-07-12] MEDS: Acetaminophen 325 MG TAB PO PRN ×2 (05:32→12:17)
[2019-07-12] MEDS: Mometasone/Formoterol 120 PUFF INHALER INH SCH ×2 (07:36→20:01)
[2019-07-12] MEDS ORDERED: Non-Formulary Item 1 EACH (Budesonide-Formoterol [Symbicort 160-4.5] 1 PUFF) INH PRN (08:31)
--- NOTE | 2019-07-12 08:36 | PDOC.FM ---
- Subjective Subjective: Pt reports feeling better, no acute complaints, no fever/chills, no cp/sob - Objective Vital Signs & Weight: Vital Signs (12 hours) Temp Pulse Resp BP Pulse Ox 07/12/19 08:00 96 07/12/19 07:44 98.0 F 66 20 99/52 L 96 07/12/19 07:36 68 12 07/12/19 04:27 97.6 F 63 16 99/68 93 L 07/12/19 00:00 96 07/11/19 23:35 97.7 F 66 20 102/63 96 Weight Weight 84.5 kg I&O: 07/11/19 07/12/19 07/13/19 06:59 06:59 06:59 Intake Total 1025 Output Total 1000 Balance 25 Result Diagrams: 07/13/19 06:35 07/13/19 06:35 Phys Exam - Physical Examination Constitutional: NAD HEENT: moist MMs, sclera anicteric Neck: supple, full ROM Respiratory: no wheezing fine bilateral crackles Cardiovascular: RRR, no significant murmur Gastrointestinal: soft, non-tender Musculoskeletal: no edema, pulses present Neurological: normal sensation, moves all 4 limbs Psychiatric: normal affect, A&O x 3 Skin: no rash, normal turgor Dx/Plan (1) UTI (urinary tract infection) due to urinary indwelling [place] catheter Code(s): T83.511A - I/I REACT D/T INDWELLING URETHRAL CATHETER, INIT; N39.0 - URINARY TRACT INFECTION, SITE NOT SPECIFIED Status: Acute (2) COPD (chronic obstructive pulmonary disease) Status: Acute (3) VENANCIO (acute kidney injury) Code(s): N17.9 - ACUTE KIDNEY FAILURE, UNSPECIFIED Status: Acute (4) Tobacco abuse, in remission Code(s): F17.201 - NICOTINE DEPENDENCE, UNSPECIFIED, IN REMISSION Status: Acute (5) History of CVA (cerebrovascular accident) Code(s): Z86.73 - PRSNL HX OF TIA (TIA), AND CEREB INFRC W/O RESID DEFICITS Status: Chronic - Plan Plan: Sepsis 2/2 CAUTI A- Pt with complicated UTI with indwelling catheter for about [address] Ordaz outpatient. s/p Rocephin and vanc. s/p 2.5L NS P- Continue rocephin -LR 125/hr -UCx pending, BCx pending Urinary Retention A- Possible neurogenic bladder 2/2 CVA vs BPH P- will try voiding trial tomorrow -continue flomax -may have to DC with in/out foleys h/o Recent CVA s/p endarterectomy A- pt was DCd with plavix at last admission. P- continue plavix -PT/OT VENANCIO on CKD A-Cr: 1.51 - elevated from baseline of ~1.25 P- LR @ 125 ml/hr -Avoid nephrotoxic drugs COPD -stable, continue home simbicort and prn nebs Addendum - Attending - Attending Attestation Date/Time: 07/15/19 8230 I personally evaluated the patient and discussed the management with the team on date of service. I agree with the History, Examination, Assessment and Plan documented above with any addition or exceptions noted below. Continue antibiotics for CAUTI. Trial without a catheter when able.
[2019-07-12] MEDS ORDERED: Non-Formulary Item 1 EACH (Cholecalciferol (Vitamin D3) [Vitamin D] 1,000 UNIT) PO SCH (09:00)
[2019-07-12] MEDS ORDERED: Clopidogrel Bisulfate 75 MG TAB PO SCH (09:00)
[2019-07-12] MEDS ORDERED: Calcium Carbonate 600 MG TAB PO SCH (09:00)
[2019-07-12] MEDS ORDERED: Tamsulosin HCl 0.4 MG CAP PO SCH (09:00)
[2019-07-12] MEDS ORDERED: CYANOCOBALAMIN 250 MCG PO SCH (09:00)
[2019-07-12] MEDS: Aspirin 81 mg Enteric Coated Tablet PO SCH (09:05)
[2019-07-12] MEDS: Calcium Citrate 950 MG TAB PO SCH (09:06)
[2019-07-12] MEDS: Cyanocobalamin (Vitamin B-12) 1,000 MCG TAB PO SCH (09:07)
[2019-07-12] MEDS: Oxybutynin 5 MG TAB PO SCH ×2 (09:07→20:24)
[2019-07-12] MEDS: Folic Acid 1 MG TAB PO SCH (09:07)
[2019-07-12] MEDS: Tamsulosin HCl 0.4 MG CAP PO SCH (09:08)
[2019-07-12] MEDS: Fenofibrate Nanocrystallized 145 MG TAB PO SCH (09:08)
[2019-07-12] MEDS: Clopidogrel Bisulfate 75 MG TAB PO SCH (09:08)
[2019-07-12] MEDS: Enoxaparin Sodium 40 MG/0.4 ML SYRINGE SC SCH (09:08)
[2019-07-12 14:10] VITALS: BMI 25.9
[2019-07-12] MEDS: cefTRIAXone\\ROCEPHIN 1 GM in Sodium Chloride 0.9% 100 ML IVPB SCH (14:44)
[2019-07-12] MEDS ORDERED: traMADol HCl 50 MG TAB PO PRN (16:01)
[2019-07-12] MEDS: Rosuvastatin 20 MG TAB PO SCH (20:24)
[2019-07-12] MEDS ORDERED: Rosuvastatin 20 MG TAB PO SCH (21:00)
[2019-07-12] MEDS ORDERED: Prevnar 13-Val Conj/PF 0.5 ML SYRINGE IM ONE (21:00)
[2019-07-13] MEDS: Acetaminophen 325 MG TAB PO PRN ×2 (00:24→17:49)
--- NOTE | 2019-07-13 05:57 | PDOC.FM ---
- Subjective Subjective: Pt reports he is feeling well this AM. On 1-2 L O2 right now, does not require O2 at home. Has been wearing it here prn per nursing. Otherwise, he complains of difficulty swallowing and difficulty coughing up things. He never saw Speech therapy after his stroke. He complains of dry mouth,. Otherwise, denies CP, abdominal pain. - Objective MAR Reviewed: Yes Vital Signs & Weight: Vital Signs (12 hours) Temp Pulse Resp BP Pulse Ox 07/13/19 04:22 98.1 F 63 20 153/91 H 92 L 07/13/19 00:00 99.3 F 73 20 147/69 H 94 L 07/12/19 20:02 94 L 07/12/19 20:01 94 L 07/12/19 20:00 98.6 F 65 20 125/78 97 Weight Admit Weight 79.832 kg Weight 79.832 kg I&O: 07/11/19 07/12/19 07/13/19 06:59 06:59 06:59 Intake Total 1025 1800 Output Total 1000 1100 Balance 25 700 Result Diagrams: 07/13/19 06:35 07/13/19 06:35 Phys Exam - Physical Examination Constitutional: NAD HEENT: PERRLA able to swallow on exam. Respiratory: no wheezing, clear to auscultation bilateral Cardiovascular: RRR, no significant murmur Gastrointestinal: soft, non-tender, no distention, positive bowel sounds Musculoskeletal: pulses present (edema 3+ at ankles) Psychiatric: normal affect, A&O x 3 Skin: no rash Dx/Plan (1) Sepsis Code(s): A41.9 - SEPSIS, UNSPECIFIED ORGANISM Status: Acute (2) VENANCIO (acute kidney injury) Code(s): N17.9 - ACUTE KIDNEY FAILURE, UNSPECIFIED Status: Acute (3) UTI (urinary tract infection) due to urinary indwelling Lentz catheter Code(s): T83.511A - I/I REACT D/T INDWELLING URETHRAL CATHETER, INIT; N39.0 - URINARY TRACT INFECTION, SITE NOT SPECIFIED Status: Acute (4) History of CVA (cerebrovascular accident) Code(s): Z86.73 - PRSNL HX OF TIA (TIA), AND CEREB INFRC W/O RESID DEFICITS Status: Chronic - Plan Plan: 79- yo M admitted for: Sepsis 2/2 CAUTI A- Pt with complicated UTI with indwelling catheter for about [address] Ordaz outpatient. s/p Rocephin and vanc. s/p 2.5L NS. BCx no growth to date. Urine culture prelim growing E. coli resistant only to fluoroquinolones. P- Continue rocephin. Transition to PO abx. -LR 125/hr. May d/c fluids today if drinking okay and if creatinine improving. -UCx pending, BCx pending Urinary Retention A- Possible neurogenic bladder 2/2 CVA vs BPH P- voiding trial today. -continue flomax -may have to DC with in/out foleys h/o Recent CVA s/p endarterectomy A- pt was DCd with plavix at last admission. P- continue plavix -PT/OT - evaluate swallowing function, consider speech therapy if no improvement. VENANCIO on CKD A-Cr: 1.51 - elevated from baseline of ~1.25 P- LR @ 125 ml/hr -Avoid nephrotoxic drugs COPD -stable, continue home simbicort and prn nebs Dispo: inpt medicine. Addendum - Attending - Attending Attestation Date/Time: 07/13/19 1200 I personally evaluated the patient and discussed the management with Dr. lorenzo /Lexi I agree with the History, Examination, Assessment and Plan documented above with any addition or exceptions noted below. Patient stable on room air currently, for voiding trial this am.
[2019-07-13] MEDS: Mometasone/Formoterol 120 PUFF INHALER INH SCH ×2 (06:37→19:34)
[2019-07-13 07:12] LABS: Anion Gap 11 mmol/L (10-20); BUN (Urea Nitrogen) 8 mg/dL (8.4-25.7); Calc. Creatinine Clearance 84 mL/min (70-130); Calcium 8.1 mg/dL (7.8-10.44); Carbon Dioxide 22 mmol/L (23-31); Chloride 110 mmol/L (98-107); Estimated GFR-MDRD 90; Glucose 87 mg/dL (83-110); Hemoglobin 11.1 g/dL (14.0-18.0); Mean Corpuscular HGB CONC 33.2 g/dL (32.0-36.0); Mean Corpuscular Hemoglobin 31.2 pg (27.0-31.0); Mean Corpuscular Volume 93.9 fL (78.0-98.0); Mean Platelet Volume 8.7 fL (7.4-10.4); Platelet Count 99 thou/uL (130-400); Potassium 3.3 mmol/L (3.5-5.1); RBC Distribution Width 11.5 % (11.5-14.5); Red Blood Cell (RBC) Count 3.57 mill/uL (4.70-6.10); Sodium 140 mmol/L (136-145); White Blood Cell (WBC) Count 2.6 thou/uL (4.8-10.8)
[2019-07-13 07:14] LABS: #Eosinphils 0.1 thou/uL (0.0-0.7); #Lymphocytes 0.5 thou/uL (1.20-3.40); #Monocytes 0.4 thou/uL (0.11-0.59); #Neutrophils 1.6 thou/uL (1.40-6.50); %Basophils 0.6 % (0.0-1.0); %Eosinophils 3.7 % (0.0-10.0); %Lymphocytes 18.7 % (21.0-51.0); %Monocytes 14.2 % (0.0-10.0); %Neutrophils 62.8 % (42.0-75.0); Giant Platelets SLIGHT; Large Platelets SLIGHT; MDiff Complete? YES; Platelet Morphology Comment Appears Decreased
[2019-07-13] MEDS ORDERED: Potassium Chloride 20 MEQ TAB PO SCH (07:30)
[2019-07-13] MEDS: Lactated Ringer's 1,000 ML IV SCH ×3 (08:36→15:11)
[2019-07-13] MEDS: Calcium Citrate 950 MG TAB PO SCH (08:37)
[2019-07-13] MEDS: Enoxaparin Sodium 40 MG/0.4 ML SYRINGE SC SCH (08:37)
[2019-07-13] MEDS: Folic Acid 1 MG TAB PO SCH (08:37)
[2019-07-13] MEDS: Cyanocobalamin (Vitamin B-12) 1,000 MCG TAB PO SCH (08:38)
[2019-07-13] MEDS: Tamsulosin HCl 0.4 MG CAP PO SCH (08:38)
[2019-07-13] MEDS: Clopidogrel Bisulfate 75 MG TAB PO SCH (08:38)
[2019-07-13] MEDS: Oxybutynin 5 MG TAB PO SCH ×2 (08:38→21:38)
[2019-07-13] MEDS: Fenofibrate Nanocrystallized 145 MG TAB PO SCH (08:38)
[2019-07-13] MEDS: Aspirin 81 mg Enteric Coated Tablet PO SCH (08:39)
[2019-07-13] MEDS: cefTRIAXone\\ROCEPHIN 1 GM in Sodium Chloride 0.9% 100 ML IVPB SCH (15:06)
[2019-07-13] MEDS: guaiFENesin ER 600 MG TAB PO SCH (21:38)
[2019-07-13] MEDS: Rosuvastatin 20 MG TAB PO SCH (21:38)
[2019-07-14] MEDS: Lactated Ringer's 1,000 ML IV SCH (00:30)
[2019-07-14] MEDS: Mometasone/Formoterol 120 PUFF INHALER INH SCH (06:50)
[2019-07-14 07:43] VITALS: BP 150/80; TEMP 97.9
--- NOTE | 2019-07-14 07:54 | PDOC.FM ---
- Subjective Subjective: Seen at bedside, no concerns from pt or nursing. No acute events over night. Pt has been urinating without problem - Objective Vital Signs & Weight: Vital Signs (12 hours) Temp Pulse Resp BP BP Pulse Ox 07/14/19 07:40 97.9 F 65 22 H 150/80 H 97 07/14/19 06:50 66 16 07/13/19 20:03 98.1 F 66 18 128/67 93 L 07/13/19 20:00 97 Weight Admit Weight 79.832 kg Weight 79.832 kg I&O: 07/13/19 07/14/19 07/15/19 06:59 06:59 06:59 Intake Total 1800 2160 Output Total 1100 500 Balance 700 1660 Result Diagrams: 07/13/19 06:35 07/13/19 06:35 Phys Exam - Physical Examination Constitutional: NAD HEENT: moist MMs Respiratory: clear to auscultation bilateral Cardiovascular: RRR, no significant murmur Gastrointestinal: no distention Musculoskeletal: no edema Neurological: moves all 4 limbs Psychiatric: A&O x 3 Skin: no rash Dx/Plan (1) VENANCIO (acute kidney injury) Code(s): N17.9 - ACUTE KIDNEY FAILURE, UNSPECIFIED Status: Acute (2) COPD (chronic obstructive pulmonary disease) Status: Acute (3) Sepsis Code(s): A41.9 - SEPSIS, UNSPECIFIED ORGANISM Status: Acute (4) UTI (urinary tract infection) due to urinary indwelling Chawla catheter Code(s): T83.511A - I/I REACT D/T INDWELLING URETHRAL CATHETER, INIT; N39.0 - URINARY TRACT INFECTION, SITE NOT SPECIFIED Status: Acute - Plan Plan: 79- yo M admitted for: Sepsis 2/2 CAUTI - resolved. Urinary Retention - chawla d/c'd yesterday. No issues with urination today. h/o Recent CVA s/p endarterectomy - continue plavix VENANCIO on CKD - resolved COPD -stable, continue home simbicort and prn nebs Dispo: ready for dc today Addendum - Attending - Attending Attestation Date/Time: 07/14/19 1114 I personally evaluated the patient and discussed the management with Dr. Elliott I agree with the History, Examination, Assessment and Plan documented above with any addition or exceptions noted below. Patient stable for discharge today voiding well home with tamsulosin.
[2019-07-14] MEDS: Aspirin 81 mg Enteric Coated Tablet PO SCH (08:56)
[2019-07-14] MEDS: Calcium Citrate 950 MG TAB PO SCH (08:56)
[2019-07-14] MEDS: Oxybutynin 5 MG TAB PO SCH (08:57)
[2019-07-14] MEDS: Fenofibrate Nanocrystallized 145 MG TAB PO SCH (08:57)
[2019-07-14] MEDS: Folic Acid 1 MG TAB PO SCH (08:57)
[2019-07-14] MEDS: Tamsulosin HCl 0.4 MG CAP PO SCH (08:57)
[2019-07-14] MEDS: Enoxaparin Sodium 40 MG/0.4 ML SYRINGE SC SCH (08:57)
[2019-07-14] MEDS: guaiFENesin ER 600 MG TAB PO SCH (08:57)
[2019-07-14] MEDS: Cyanocobalamin (Vitamin B-12) 1,000 MCG TAB PO SCH (08:58)
[2019-07-14] MEDS: Clopidogrel Bisulfate 75 MG TAB PO SCH (08:58)
--- NOTE | 2019-07-15 05:20 | DIS ---
DATE OF ADMISSION: 07/11/2019 DATE OF DISCHARGE: 07/14/2019 ADMITTING ATTENDING: Ratna Jackson MD DISCHARGE ATTENDING: Didier Crawford MD RESIDENT: Adama Elliott DO CONSULTS: None. PROCEDURES: None. ADMITTING DIAGNOSES: 1. Sepsis secondary to urinary tract infection 2. tobacco use 3. acute kidney injury 4. BPH 5. CAD 7. COPD DISCHARGE DIAGNOSES: 1. Catheter-associated urinary tract infection, resolved. 2. Acute kidney injury, resolved. 3. Acute urinary retention, resolved. 4. Tobacco abuse. 5. Benign prostatic hypertrophy. 6. Coronary artery disease. 7. Chronic obstructive pulmonary disease. DISCHARGE MEDICATIONS: 1. Aspirin 81 mg p.o. daily. 2. Vitamin D3 of 1000 units p.o. daily. 3. Calcium 600 mg p.o. daily. 4. Plavix 75 mg p.o. daily. 5. Crestor 20 mg p.o. at bedtime. 6. Oxybutynin 5 mg p.o. b.i.d. 7. Flomax 0.4 mg p.o. daily. 8. Vitamin B12 of 250 mcg p.o. daily. 9. Folic acid 0.4 mg p.o. daily. 10. Symbicort 160 mg/4.5 mg one puff inhaled p.r.n. HOSPITAL COURSE: This is a 79-year-old male, who was admitted for sepsis secondary to a catheter associated urinary tract infection. This Lentz had been placed during a previous hospitalization, where he underwent an endarterectomy. Initially, his urine had large leukocyte esterase, greater than 50 white cells and 3+ urine bacteria. His urine grew out Escherichia coli, which was pansensitive with the exception of fluoroquinolones. The patient's catheter was initially removed, however he developed urinary retention, so it was replaced. He was given IV Rocephin throughout his hospitalization. The day prior to discharge, his Lentz was removed and he had a voiding trial throughout the final day of his hospitalization. He was able to urinate without his catheter. On the day of discharge, again, he was able to urinate without his catheter. At this time, he will be discharged to home with completion of antibiotics and no need for his catheter. He is to follow up with his PCP within one week. DISCHARGE INSTRUCTIONS: 1. Location: Home. 2. Diet: Heart healthy. 3. Follow up with Dr. Avelar in one week. 4. Activity: Ad corina. Job ID: [id number] [id number]
== END 2019-07-14 11:18 | disposition home or self-care (01) | DRG 698 ==
LOC: ERS 19:32 → T4-A 23:55
PROVIDERS: ADMIT Family Medicine; ATTEND Family Medicine
DX: T83.511A Infection and inflammatory reaction due to indwelling urethral catheter, initial encounter (principal); A41.9 Sepsis, unspecified organism; N17.9 Acute kidney failure, unspecified; N40.0 Benign prostatic hyperplasia without lower urinary tract symptoms; I25.10 Atherosclerotic heart disease of native coronary artery without angina pectoris; J44.9 Chronic obstructive pulmonary disease, unspecified; F17.201 Nicotine dependence, unspecified, in remission; N18.9 Chronic kidney disease, unspecified; Y83.9 Surgical procedure, unspecified as the cause of abnormal reaction of the patient, or of later complication, without mention of misadventure at the time of the procedure; R33.9 Retention of urine, unspecified; I95.9 Hypotension, unspecified; Z86.73 Personal history of transient ischemic attack (TIA), and cerebral infarction without residual deficits
CPT/HCPCS: 36415; 71046; 80048; 83735; 85025; 94664; 96361; 96365; J0696; J1650; J3370; J3490

== ENCOUNTER 2021-04-20 10:11 | Outpatient (CLI) | payer MEDICARE | END 2021-04-20 10:12 | disposition home or self-care (01) | LOC: RAD 10:11 | PROVIDERS: ATTEND Internal Medicine Critical Care Medicine | DX: R06.00 Dyspnea, unspecified (principal); J98.4 Other disorders of lung | CPT/HCPCS: 71046 ==

== ENCOUNTER 2022-05-31 10:29 | Outpatient (CLI) | payer MEDICARE | END 2022-05-31 10:30 | disposition home or self-care (01) | LOC: RAD 10:29 | PROVIDERS: ATTEND Internal Medicine Critical Care Medicine | DX: R06.00 Dyspnea, unspecified (principal) | CPT/HCPCS: 71046 ==

== ENCOUNTER 2023-05-29 11:31 | Outpatient (CLI) | payer MEDICARE | END 2023-05-29 11:32 | disposition home or self-care (01) | LOC: RAD 11:31 | PROVIDERS: ATTEND Internal Medicine Critical Care Medicine | DX: R06.00 Dyspnea, unspecified (principal); J98.4 Other disorders of lung | CPT/HCPCS: 71046 ==

== ENCOUNTER 2023-12-21 09:35 | Outpatient (CLI) | payer MEDICARE | END 2023-12-21 09:36 | disposition home or self-care (01) | LOC: RAD 09:35 | PROVIDERS: ATTEND Internal Medicine Critical Care Medicine | DX: R06.00 Dyspnea, unspecified (principal) | CPT/HCPCS: 71046 ==

== ENCOUNTER 2024-04-08 17:48 | Inpatient (IN) | payer MEDICARE ==
[2024-04-08] MEDS ORDERED: Ondansetron ODT 4 MG TAB PO PRN (18:05)
[2024-04-08] MEDS ORDERED: Ondansetron PF 4 MG/2 ML Vial IVP PRN (18:05)
[2024-04-08] MEDS ORDERED: Lactated Ringer's 1,000 ML IV SCH (19:00)
[2024-04-08] MEDS: Oxybutynin ER 5 MG TAB PO SCH (20:53)
[2024-04-08] MEDS: Potassium Chloride 20 MEQ TAB PO SCH (20:53)
[2024-04-08] MEDS: Lactated Ringer's 1,000 ML IV SCH (20:54)
[2024-04-08] MEDS: Cholecalciferol 1,000 UNITS (25 MCG) TAB PO SCH (20:54)
[2024-04-08] MEDS ORDERED: Oxybutynin 5 MG TAB PO SCH (21:00)
[2024-04-08] MEDS ORDERED: Rosuvastatin 20 MG TAB PO SCH (21:00)
[2024-04-09 05:29] LABS: #Basophils Less than 0.03 10x3/uL (0.0-0.2); %Basophils 0.2 % (0.0-1.0); %Eosinophils 1.3 % (0.0-10.0); %Lymphocytes 12.5 % (21.0-51.0); %Monocytes 11.9 % (0.0-10.0); %Neutrophils 73.6 % (42.0-75.0); Hematocrit 33.5 % (42.0-52.0); Mean Corpuscular HGB CONC 32.8 g/dL (32.0-36.0); Mean Corpuscular Hemoglobin 30.5 pg (27.0-31.0); Mean Corpuscular Volume 92.8 fL (78.0-98.0); Mean Platelet Volume 11.5 fL (7.4-10.4); Platelet Count 197 10x3/uL (130-400); RBC Distribution Width 19.4 % (11.5-14.5); Red Blood Cell (RBC) Count 3.61 mill/uL (4.70-6.10)
[2024-04-09 05:35] LABS: INR-International Normal Ratio 1.7; Prothrombin Time 19.9 sec (12.0-14.7)
[2024-04-09 06:53] LABS: ALT (SGPT) 178 U/L (8-55); AST (SGOT) 314 U/L (5-34); Albumin 1.7 g/dL (3.4-4.8); Alkaline Phosphatase 817 U/L (40-110); Anion Gap 12 mmol/L (10-20); Bilirubin, Total 18.8 mg/dL (0.2-1.2); Calc. Creatinine Clearance 0 mL/min (70-130); Calcium 8.4 mg/dL (7.8-10.44); Carbon Dioxide 25 mmol/L (23-31); Chloride 105 mmol/L (98-107); Estimated GFR 43; Globulin 2.9 g/dL (2.4-3.5); Glucose 103 mg/dL (83-110); Magnesium 1.9 mg/dL (1.6-2.6); Potassium 2.6 mmol/L (3.5-5.1); Protein, Total 4.6 g/dL (5.8-8.1); Sodium 139 mmol/L (136-145)
[2024-04-09 06:54] LABS: BUN (Urea Nitrogen) 13 mg/dL (8.4-25.7)
[2024-04-09] MEDS: Mometasone 200 MCG/Formoterol 5 MCG 120 PUFF INHALER INH SCH (08:54)
[2024-04-09] MEDS: Tamsulosin HCl 0.4 MG CAP PO SCH (09:05)
[2024-04-09] MEDS: Potassium Chloride 20 MEQ TAB PO SCH (09:05)
[2024-04-09] MEDS: Cyanocobalamin (Vitamin B-12) 1,000 MCG TAB PO SCH (09:05)
[2024-04-09] MEDS: FLUoxetine HCl 20 MG CAP PO SCH (09:05)
[2024-04-09] MEDS: Potassium Chloride 20 MEQ in Premix 1 BAG IVPB SCH (11:20)
[2024-04-09 14:11] LABS: Potassium 3.3 mmol/L (3.5-5.1)
[2024-04-09] MEDS: Artificial Tear Ophth Sol 15 ML BOT EA EYE PRN (21:02)
[2024-04-09] MEDS: Phytonadione 5 MG TAB PO SCH (22:31)
[2024-04-09] MEDS: Thiamine 100 MG TAB PO SCH (22:31)
[2024-04-10 05:12] LABS: #Basophils Less than 0.03 10x3/uL (0.0-0.2); %Basophils 0.1 % (0.0-1.0); %Eosinophils 2.4 % (0.0-10.0); %Monocytes 13.2 % (0.0-10.0); Hematocrit 31.4 % (42.0-52.0); Hemoglobin 10.2 g/dL (14.0-18.0); Mean Corpuscular HGB CONC 32.5 g/dL (32.0-36.0); Mean Corpuscular Hemoglobin 30.5 pg (27.0-31.0); Mean Platelet Volume 11.2 fL (7.4-10.4); Platelet Count 188 10x3/uL (130-400); RBC Distribution Width 19.7 % (11.5-14.5); Red Blood Cell (RBC) Count 3.34 mill/uL (4.70-6.10)
[2024-04-10 05:25] LABS: ALT (SGPT) 159 U/L (8-55); AST (SGOT) 270 U/L (5-34); Albumin 1.6 g/dL (3.4-4.8); Alkaline Phosphatase 750 U/L (40-110); Anion Gap 10 mmol/L (10-20); BUN (Urea Nitrogen) 13 mg/dL (8.4-25.7); Bilirubin, Total 19.8 mg/dL (0.2-1.2); Calc. Creatinine Clearance 0 mL/min (70-130); Calcium 8.3 mg/dL (7.8-10.44); Carbon Dioxide 24 mmol/L (23-31); Chloride 107 mmol/L (98-107); Estimated GFR 63; Globulin 2.8 g/dL (2.4-3.5); Glucose 107 mg/dL (83-110); Potassium 2.9 mmol/L (3.5-5.1); Protein, Total 4.4 g/dL (5.8-8.1); Sodium 138 mmol/L (136-145)
[2024-04-10] MEDS: Thiamine 100 MG TAB PO SCH (09:31)
[2024-04-10] MEDS: Potassium Chloride 20 MEQ TAB PO SCH ×2 (10:39→11:31)
[2024-04-10] MEDS: Potassium Chloride 20 MEQ in Premix 1 BAG IVPB SCH (10:39)
[2024-04-10] MEDS ORDERED: Ipratropium/Albuterol 3 ML NEB NEB PRN (16:28)
[2024-04-10 18:07] VITALS: BMI 22.6
[2024-04-10 19:20] VITALS: BP 116/65; TEMP 98.2
== END 2024-04-10 19:05 | disposition short-term general hospital (02) | DRG 439 ==
LOC: MSONC 17:48
PROVIDERS: ADMIT Student in an Organized Health Care Education/Training Program; ATTEND Student in an Organized Health Care Education/Training Program
DX: K85.90 Acute pancreatitis without necrosis or infection, unspecified (principal); E46 Unspecified protein-calorie malnutrition; I69.351 Hemiplegia and hemiparesis following cerebral infarction affecting right dominant side; N17.9 Acute kidney failure, unspecified; K86.89 Other specified diseases of pancreas; E78.5 Hyperlipidemia, unspecified; J44.9 Chronic obstructive pulmonary disease, unspecified; N40.0 Benign prostatic hyperplasia without lower urinary tract symptoms; E87.6 Hypokalemia; N18.2 Chronic kidney disease, stage 2 (mild); R53.81 Other malaise; R53.1 Weakness; Z68.22 Body mass index [BMI] 22.0-22.9, adult; Z79.899 Other long term (current) drug therapy; Z79.82 Long term (current) use of aspirin; Z87.891 Personal history of nicotine dependence; R63.4 Abnormal weight loss; K83.8 Other specified diseases of biliary tract; I48.0 Paroxysmal atrial fibrillation; K80.20 Calculus of gallbladder without cholecystitis without obstruction
CPT/HCPCS: 36415; 80053; 83735; 85025; 85610; 85730; 94664; J3480; J7120